=== PATIENT | female | born 1980 | race Asian ===

== ENCOUNTER → 2018-01-28 07:15 | Outpatient (CLI) | payer OTHER, SELFPAY ==
[2018-01-28 08:15] LABS: Anion Gap 7 (5-15); BUN 8 mg/dL (7-18); BUN/Creat Ratio 9.1 RATIO (10-20); Calcium,Total 9.2 mg/dL (8.5-10.1); Chloride 105 mmol/L (98-107); Creatinine, Serum 0.88 mg/dL (0.55-1.02); EST Glomerular Filtration Rate 78 mL/min (>60); Est Glom Filt Rate - Afr Amer 94 mL/min (>60); Glucose 117 mg/dL (74-106); Sodium Level 136 mmol/L (136-145); T4 Free Direct 1.24 ng/dL (0.76-1.46); Thyroid Stim Hormone (TSH) 1.05 uIU/mL (0.358-3.74)
[2018-01-28 13:26] LABS: Vitamin D,25 Hydroxy 50.3 ng/mL (29.95-100.01)
== END ==
PROVIDERS: Family Provider Internal Medicine Endocrinology, Diabetes & Metabolism; PCP Internal Medicine Endocrinology, Diabetes & Metabolism; Visit Provider Internal Medicine Endocrinology, Diabetes & Metabolism
DX: R73.01 Impaired fasting glucose (principal); E03.9 Hypothyroidism, unspecified; E55.9 Vitamin D deficiency, unspecified
CPT/HCPCS: 36415; 80048; 82306; 84439; 84443

== ENCOUNTER → 2018-07-29 06:53 | Outpatient (CLI) | payer OTHER, SELFPAY ==
[2018-07-29 07:52] LABS: Hemoglobin A1c 5.7 % (4.2-6.3)
[2018-07-29 07:59] LABS: Anion Gap 10 (5-15); BUN 9 mg/dL (7-18); BUN/Creat Ratio 10.3 RATIO (10-20); Calcium,Total 9.1 mg/dL (8.5-10.1); Chloride 108 mmol/L (98-107); Creatinine, Serum 0.87 mg/dL (0.55-1.02); EST Glomerular Filtration Rate 78 mL/min (>60); Est Glom Filt Rate - Afr Amer 94 mL/min (>60); Glucose 104 mg/dL (74-106); Potassium 4.5 mmol/L (3.5-5.1); Sodium Level 142 mmol/L (136-145); T4 Free Direct 1.24 ng/dL (0.76-1.46); Thyroid Stim Hormone (TSH) 1.77 uIU/mL (0.358-3.74)
[2018-07-29 08:10] LABS: Vitamin D,25 Hydroxy 55.9 ng/mL (29.95-100.01)
== END ==
LOC: LAB 06:55
PROVIDERS: Visit Provider Internal Medicine Endocrinology, Diabetes & Metabolism
DX: R73.01 Impaired fasting glucose (principal); E03.9 Hypothyroidism, unspecified; E55.9 Vitamin D deficiency, unspecified
CPT/HCPCS: 36415; 80048; 82306; 83036; 84439; 84443

== ENCOUNTER → 2022-10-23 | Outpatient (CLI) | payer BC, SELFPAY ==
[2022-10-23 08:55] LABS: AST(SGOT) 19 U/L (15-37); Alanine Aminotransfer ALT/SGPT 36 U/L (13-56); Albumin, Serum 3.7 g/dL (3.2-5.0); Alkaline Phosphatase 77 U/L (45-117); Globulin 3.2 g/dL (2.2-4.2); Protein, Total 6.9 g/dL (6.4-8.2)
== END | disposition home or self-care (01) ==
LOC: LAB 08:01
DX: R94.5 Abnormal results of liver function studies (principal)
CPT/HCPCS: 36415; 80076

== ENCOUNTER → 2023-06-21 | Outpatient (CLI) | payer BC, SELFPAY ==
--- NOTE | 2023-06-21 08:30 | BI_ITS ---
MAMMOGRAPHY - BILATERAL SCREENING REASON FOR EXAM: Female, 43 years old. Routine annual screening examination. PERTINENT HISTORY: Non-contributory. TECHNIQUE: Digital bilateral breast robert (3D mammographic acquisition) in the CC and MLO projections. 2-D mediolateral oblique (MLO) and craniocaudad (CC) views of both breasts were obtained. CAD: Full Field Digital Mammography with Computer Added Detection was performed. COMPARISON: None. Baseline examination. FINDINGS: Breast Composition: The breasts are heterogeneously dense, which may obscure small masses. There are no dominant masses or suspicious calcifications. Fat-containing bilateral axillary nodes. No other significant abnormalities are identified. BI/SCRN MAMM (CAD)W/ROBERT BILAT IMPRESSION: Negative screening mammogram. Yearly followup mammogram recommended. (A) ASSESSMENT CATEGORY: BIRADS Category 2: Benign. A letter regarding these results will be sent to the patient by the facility within 30 days. Approximately 10% of breast cancers are not detected by mammography. A normal mammogram should not delay biopsy of a clinically suspicious abnormality. [id number] Electronically Signed: Keon Cunningham MD at 9:19 EDT ,
== END | disposition home or self-care (01) ==
PROVIDERS: Referring Provider Student in an Organized Health Care Education/Training Program; Visit Provider Student in an Organized Health Care Education/Training Program
DX: Z12.31 Encounter for screening mammogram for malignant neoplasm of breast (principal)
CPT/HCPCS: 77063; 77067

== ENCOUNTER → 2023-12-06 | Outpatient (CLI) | payer BC, SELFPAY ==
--- NOTE | 2023-12-06 16:35 | MRI_ITS ---
EXAM: MR LEFT LOWER EXTREMITY WITHOUT INTRAVENOUS CONTRAST, KNEE CLINICAL INDICATION: pain, rule out MM tear TECHNIQUE: Multiplanar and multisequence MR images of the left knee without intravenous contrast. COMPARISON: Knee radiographs, 11/26/2023. FINDINGS: BONES/JOINTS: See below. No discrete fracture. Findings associated with the patellar cartilage. EXTENSOR MECHANISM: No significant abnormality. MEDIAL MENISCUS: No significant abnormality. LATERAL MENISCUS: No significant abnormality. MEDIAL CAPSULE/SUPPORTING STRUCTURES: No significant abnormality. Intact. LATERAL CAPSULE/SUPPORTING STRUCTURES: No significant abnormality. Lateral collateral ligamentous complex, inclusive of the popliteal tendon, are intact. ANTERIOR CRUCIATE LIGAMENT: No significant abnormality. Intact. POSTERIOR CRUCIATE LIGAMENT: No significant abnormality. Intact. MUSCLES: No significant abnormality. CARTILAGE: Within the lateral retropatellar articular facet, there is a focal full-thickness chondral defect with subchondral edema and small cysts. There is minimal fraying/fissuring of the apex of the retropatellar articular cartilage with additional apparent full-thickness chondral defect at the apex. The weightbearing articular cartilage appears intact. FLUID: There is a small joint effusion. OTHER SOFT TISSUES: No significant abnormality. No popliteal cyst. MRI/Lower Ext Joint Only (Routine) IMPRESSION: 1. Chondromalacia patella with full-thickness chondral defects, chondral thinning and fraying/visualized, and subchondral edema and cystic change. 2. Intact menisci and cruciate ligaments. 3. Small joint effusion. Electronically Signed: Abimael Vo DO at 16:35 EST ,
== END | disposition home or self-care (01) ==
LOC: MRI 16:24
PROVIDERS: Referring Provider Orthopaedic Surgery Sports Medicine; Visit Provider Orthopaedic Surgery Sports Medicine
DX: M25.562 Pain in left knee (principal)
CPT/HCPCS: 73721

== ENCOUNTER 2023-12-25 08:30 | Outpatient (RCR) | payer BC, SELFPAY ==
--- NOTE | 2023-11-26 11:20 | HP.PTEVAL ---
Patient's Visit Information Visit Information Visit Information: LILIBETH OLSON is a 43 year old F referred to Physical Therapy by Dr. Roman Ramirez MD with a diagnosis of L knee pain. Date of Evaluation: 11/26/23 Physical Therapist: Wil Izaguirre, PT, ATC Visit Plan Frequency: 2x /Week Duration: 4 Weeks Plan: L knee strengthening and stretching, core stab ex's, balance and proprio, bike, and HEP Subjective Subjective: Pt reports she was donning her pants 3 days ago when she experienced a popping sensation in her L knee. Pt reports this resulted in immediate pain and swelling. Pt reports she has been icing her L knee over the last several days, and the pain has improved. However, she continues to have to limp with ambulation. Pt notes she works at the [employer]) and has to be able to ambulate throughout the campus which is difficult at this time. She also has to negotiate stairs at times, which she has to negotiate one step at a time. Pain is generalized throughout her L knee. Pt denies PMHx of L knee complications, but notes she has had surgery on her R knee 23 years ago. Pt reports sleep difficulty at this time secondary to pain. Pt denies tingling or numbness in L LE. L knee pain ranges from 3-6/10 at this time. Pain L knee: Pain Intensity (Out of 10): 3 Pain Intensity Range: 6 Objective Objective: Neuro: B LE sensation is WNL to light touch. Palpation: Pt is sore on the medial joint line of L knee. No obvious deformity at this time. Sig crepitus with AROM Girth at joint line: B knees 36 cm ROM: L knee 0-115 degrees, R knee 0-140 MMT: R knee flex= 37, ext= 50; L knee flex= 27, ext= 47 #F Special tests: Pos apley compression test, post mcconnels test Balance/Special Test Scores Lower Extremity Functional Score: 25 Goals Goal 1:: Decrease L knee pain x 50% to aid with sleep Goal Time Frame: 4-6 Weeks Goal 2:: Increase L knee strength to equal R knee strength to aid with stair negoation Goal Time Frame: 4-6 Weeks Goal 3:: Increase L knee flexion x 20 degrees to aid with IADL's Goal Time Frame: 4-6 Weeks Goal 4:: I with HEP Goal Time Frame: 4-6 Weeks Rehabilitation Potential Physical Therapy Diagnosis: Pt has L knee pain, weakness, and limited ROM secondary to L knee IKD Rehabilitation Potential: Good Anticipated Interventions Patient/Client Instruction: Educate patient on: Condition and Plan of Care For the Purpose of:: To improve self management Therapeutic Exercise to Include: Strength training, Endurance training, Balance training, Flexibilty training, Active ROM and Dynamic Lumbar Stabilization For the Purpose of:: To decrease pain, To increase ROM and To improve muscle performance and motor function Cryotherapy (ice pack, ice massage): Yes For the Purpose of:: To decrease pain Text: Thank you for the opportunity to evaluate your patient. For Medicare and Medicare HMO plans, please review the plan of care and approve it. It will need to be FAXED BACK to us at [phone] for Medicare purposes. For Medicare only, by signing this I certify the plan of care. Please let me know if there are questions or concerns regarding this plan of care. Physician Signature: Date:
--- NOTE | 2024-02-17 12:23 | HP.PT.NRP ---
Patient Information Patient Information: LILIBETH OLSON was seen in my office for initial evaluation on 11/26/23. The following Plan of Care was established for this patient: POC Established Initial Frequency: 2x /Week Initial Duration: 4 Weeks Anticipated Interventions Patient/Client Instruction: Educate patient on: Condition and Plan of Care For the Purpose of:: To improve self management Therapeutic Exercise to Include: Strength training, Endurance training, Balance training, Flexibilty training, Active ROM and Dynamic Lumbar Stabilization For the Purpose of:: To decrease pain, To increase ROM and To improve muscle performance and motor function Cryotherapy (ice pack, ice massage): Yes For the Purpose of:: To decrease pain Last Seen Last Seen: This patient was last seen in our office . Pertinent comments regarding their Physical therapy will appear below: Pt was treated for 6 PT visits for L knee pain through the date of 01/01/24. Pt has not returned through todays date and is discontinued at this time. At this point I will be discontinuing this patient from physical therapy. I would be happy to see this patient again in the future if found appropriate by the physician. Thank you! Wil Izaguirre, PT, ATC Balance/Gait/Functional tests Balance/Special Test Scores Lower Extremity Functional Score: 25
== END 2023-12-25 19:00 | disposition home or self-care (01) ==
LOC: PT 08:30
PROVIDERS: Referring Provider Orthopaedic Surgery Sports Medicine; Visit Provider Orthopaedic Surgery Sports Medicine
DX: M25.562 Pain in left knee (principal)
CPT/HCPCS: 97110; 97161

== ENCOUNTER 2024-08-14 15:00 | Outpatient (RCR) | payer BC, SELFPAY ==
--- NOTE | 2024-06-09 15:09 | HP.PTEVAL ---
Patient's Visit Information Visit Information Visit Information: LILIBETH OLSON is a 44 year old F referred to Physical Therapy by Dr. Darshan Wright MD with a diagnosis of L knee menisectomy/debridement/chondroplasty 06/03/24. Date of Evaluation: 06/09/24 Physical Therapist: Wil Izaguirre, PT, ATC Visit Plan Frequency: 2-3x /Week Duration: 4-6 Weeks Plan: Follow protocol in chart. CP for pain Subjective Subjective: DOS: 06/03/24. Pt had a L knee menisectomy/chondroplasty/debridement performed at that time. Pt reports she has been performing her HEP consistently since that time. Pt notes she is still in quite a bit of pain today. Pt notes it is sore to walk on. Pt reports difficulty with falling a sleep at this time secondary to discomfort. Pt reports she has stairs at home that she has to negotiate one step at a time. Pt denies any tingling or numbness at this time. Pt reports her greatest complaint at this time is the tightness and stiffness in L knee. Pt reports she works at the [employer] where she is mostly just sitting in a desk. No PMHx of L knee prior to this episode. 1/10 pain while sitting here in the clinic, increases to 6/10 with ambulation, and has been 9/10 at worst. Pain L knee: Pain Intensity (Out of 10): 1 Pain Intensity Range: 9 Objective Objective: Neuro: B LE sensation is WNL to light touch Girth at joint line: R knee 36 cm, L knee 37 cm ROM: R knee 0-135; L knee 0-10-85 degrees MMT: R knee flex= 35, ext= 40 #F; L knee flex= 7, ext= 4 #F Tu.74 sec Balance/Special Test Scores Lower Extremity Functional Score: 7 Goals Goal 1:: Decrease L knee pain x 50% to aid with sleep Goal Time Frame: 4-6 Weeks Goal 2:: Increase L knee strength x 15#F to aid with stair negotiation Goal Time Frame: 4-6 Weeks Goal 3:: Increase L knee ROM x 30 degrees to aid with restoring a more normalized gait pattern Goal Time Frame: 4-6 Weeks Goal 4:: I with HEP Goal Time Frame: 4-6 Weeks Rehabilitation Potential Rehabilitation Potential: Good Anticipated Interventions Patient/Client Instruction: Educate patient on: Condition and Plan of Care For the Purpose of:: To improve self management Therapeutic Exercise to Include: Strength training, Endurance training, Balance training, Flexibilty training, Passive ROM, Active ROM and Dynamic Lumbar Stabilization For the Purpose of:: To decrease pain, To increase ROM and To improve muscle performance and motor function Cryotherapy (ice pack, ice massage): Yes For the Purpose of:: To decrease pain Text: Thank you for the opportunity to evaluate your patient. For Medicare and Medicare HMO plans, please review the plan of care and approve it. It will need to be FAXED BACK to us at [phone] for Medicare purposes. For Medicare only, by signing this I certify the plan of care. Please let me know if there are questions or concerns regarding this plan of care. Physician Signature: Date:
--- NOTE | 2024-08-14 15:55 | HP.PTDCSUM ---
Discharge Summary D/C summary: It has been my pleasure to treat LILIBETH OLSON referred by Dr. Darshan Wright MD, with the diagnosis of L knee menisectomy/debridement/chondroplasty 06/03/24 for a total of 5 visit(s). Discharge Date: Please see the following information for a summary of their discharge status. Subjective Subjective: No pain at rest now. Pt believes she is able to continue I at this time Pain L knee: Pain Intensity (Out of 10): 0 Overall Improvement % Improvement: 75 Objective Objective/Function: L knee pain 0/10. Increases to 5/10 at worst (when she squats) MMT: L knee flex= 39, ext= 52 #F ROM: L knee 0-140 degrees I with HEP. Rx goals achieved Goals Goal 1:: Decrease L knee pain x 50% to aid with sleep Goal Progress: Goal Met Goal 2:: Increase L knee strength x 15#F to aid with stair negotiation Goal Progress: Goal Met Goal 3:: Increase L knee ROM x 30 degrees to aid with restoring a more normalized gait pattern Goal Progress: Goal Met Goal 4:: I with HEP Goal Progress: Goal Met Plan Plan: Discharge to HEP D/C Information d/c sentence: If there are questions or concerns regarding this patient's physical therapy, please feel free to call me at [phone]. Thank you for the referral of this patient. Sincerely, Wil Izaguirre, PT, ATC Balance/Gait/Functional tests Balance/Special Test Scores Lower Extremity Functional Score: 7 Improvement % Improvement: 75
== END 2024-08-14 19:00 | disposition home or self-care (01) ==
LOC: PT 15:00
PROVIDERS: Referring Provider Orthopaedic Surgery; Visit Provider Orthopaedic Surgery
DX: M22.42 Chondromalacia patellae, left knee (principal)
CPT/HCPCS: 97110; 97161; 97530